=== PATIENT | female | born 1970 | race Asian ===

== ENCOUNTER 2024-03-19 10:09 | Emergency (ER) | payer BC, SELFPAY ==
[2024-03-19 10:29] VITALS: BP 109/69; PULSE 67; RESP 16; TEMP 36.4; O2SAT 98; BMI 21.4
--- NOTE | 2024-03-19 11:13 | PD.EDRME ---
Rapid Medical Screening Exam RME Arrival date/time: 03/19/24 10:09 This is a 54-year-old female that comes in with complaints of abdominal pain to the left lower quadrant. Patient states the pain started last night. Patient reports that she has had this pain before in the past but is gone away on its own. Patient denies nausea, vomiting, diarrhea, fever. Patient has a history of hysterectomy in the past. I have greeted and performed a focused initial assessment of this patient. Initial appropriate labs ordered at this time. A comprehensive ED assessment and evaluation of the patient and analysis of all test and completion of medical decision making process will be conducted by additional ED provider. Chief Complaint: Abdominal Pain Time Seen by Provider: 03/19/24 10:52 Vital signs: Vital Signs Temperature 97.5 F 03/19/24 10:29 Pulse Rate 67 03/19/24 10:29 Respiratory Rate 16 03/19/24 10:29 Blood Pressure 109/69 03/19/24 10:29 Pulse Oximetry (%) 98 03/19/24 10:29 Oxygen Delivery Method Room Air 03/19/24 10:29
[2024-03-19 11:54] LABS: Alanine Aminotransferase 34 U/L (10-49); Albumin, Serum 4.6 gm/dL (3.5-5.0); Albumin/Globulin Ratio 1.7 (1.2-2.2); Alkaline Phosphatase 55 U/L (46-116); Anion Gap 6 (7-16); Aspartate Amino Transferase 20 U/L (0-34); BUN/Creatinine Ratio 19 Ratio (12-20); Basophils % (Auto) 0 % (0-2.5); Bilirubin,Total 0.7 mg/dL (0.3-1.2); Blood Urea Nitrogen 13 mg/dL (9-23); Calcium 9.5 mg/dL (8.3-10.6); Calcium (Corrected) 9.5 mg/dL (8.5-10.1); Carbon Dioxide 27.8 mMol/L (20.0-31.0); Chloride 106 mMol/L (98-107); Creatinine (Component) 0.7 mg/dL (0.6-1.3); Eosinophils # (Auto) 0.1 Thou/mm3 (0.0-0.5); Eosinophils % (Auto) 1 % (0-10); Estimated Creatinine Clearance 80.3 mL/min (>60); Globulin 2.7 gm/dL (2.3-3.5); Glucose 98 mg/dL (74-106); Hematocrit 39.4 % (36.0-46.0); Hemoglobin 12.9 g/dL (12.0-16.0); Immature Granulocytes % (Auto) 0 % (0-0); Immature Granulocytes Auto 0.01 Thou/mm3 (0.00-0.00); Lipase 283 U/L (12-53); Lymphocytes # (Auto) 1.6 Thou/mm3 (1.0-4.8); Lymphocytes % (Auto) 25 % (10-50); Mean Corpuscular HGB Conc 32.7 g/dl (31.0-37.0); Mean Corpuscular Hemoglobin 31.4 pg (25.0-35.0); Mean Corpuscular Volume 96 fL (80-100); Monocytes # (Auto) 0.4 Thou/mm3 (0.0-0.8); Monocytes % (Auto) 6 % (0-12); Neutrophils # (Auto) 4.5 Thou/mm3 (1.8-7.7); Neutrophils % (Auto) 68 % (37-80); Nucleated Red Blood Cell % 0 /100 WBC (0); Osmolality,Calculated 279 (275-295); Platelet Count 247 Thou/mm3 (140-440); Potassium 3.7 mMol/L (3.4-5.1); RDW Standard Deviation 44.2 fL (36.4-46.3); Red Blood Count 4.11 Miln/mm3 (4.00-5.20); Sodium 140 mMol/L (136-145); Total Protein 7.3 gm/dL (5.7-8.2); White Blood Count 6.6 Thou/mm3 (3.6-11.0); eGFR > 60 See Note
[2024-03-19 13:01] LABS: Collection Type, Urine Voided
[2024-03-19 13:36] LABS: Bilirubin,Urine Negative (Negative); Blood,Urine Negative (Negative); Calcium Oxalate Crystals,Urine 1+; Clarity,Urine Turbid (Clear/Hazy); Color,Urine Yellow (Lt Yel-Yel); Culture Indicated,Urine Not Indicated; Glucose, Urine Negative (Negative); Ketones,Urine Negative (Negative); Leukocyte Esterase,Urine Negative (Negative); Nitrite,Urine Negative (Negative); Protein,Urine 1+ (Neg - Trace); RBC,Urine 1 /hpf (0-3); Specific Gravity,Urine 1.035 (1.001-1.035); Squamous Epithelial Cell,Urine 14 /hpf (0-5); WBC,Urine 3 /hpf (0-5)
--- NOTE | 2024-03-19 14:53 | PD.EDABDPN ---
ED Abdominal Pain RME/HPI General Chief Complaint: Abdominal Pain Stated complaint: Abdominal pain X 3 days Time seen by provider: 03/19/24 10:52 Arrival date/time: 03/19/24 10:09 RME / HPI RME / HPI narrative: 03/19/24 10:09 This is a 54-year-old female that comes in with complaints of abdominal pain to the left lower quadrant. Patient states the pain started last night. Patient reports that she has had this pain before in the past but is gone away on its own. Patient denies nausea, vomiting, diarrhea, fever. Patient has a history of hysterectomy in the past. I have greeted and performed a focused initial assessment of this patient. Initial appropriate labs ordered at this time. A comprehensive ED assessment and evaluation of the patient and analysis of all test and completion of medical decision making process will be conducted by additional ED provider. DR. EHSAN GATES ED EVALUATION 54 year old female with history of hysterectomy, kidney stone on the left side presents to the ED for abdominal pain beginning 3 days ago. Described as aching in sensation that is located to the left lower quadrant, rating as mild-moderate. Denies fevers, chills, cough, vomiting, diarrhea, or urinary symptoms. No other associated symptoms or complaints reported. Related Data Allergies Allergy/AdvReac Type Severity Reaction Status Date / Time Penicillins Allergy Verified 03/19/24 10:15 Review of Systems Review of Systems Narrative Review of Systems: GEN: No fever, no chills, no weight loss EYES: No discharge, no visual changes, no pain HEENT: No ear pain, no congestion, no sore throat PULM: No shortness of breath, no cough, no congestion CV: No chest pain, no dyspnea on exertion, no palpitations GI: No nausea, no vomiting, no diarrhea, +pain, no constipation : No frequency, no urgency and no dysuria MUSC/SKEL No joint pain, no back pain SKIN: No rash NEURO: No weakness, no headache Past Medical History Social History SMOKING STATUS: Never smoker ED Exam Narrative Physical exam: GENERAL APPEARANCE: Well hydrated, well nourished, in no acute distress. VITALS: All vitals were reviewed and the pulse ox is 98% on room air which is normal according to my interpretation. HEENT: Normocephalic, atramatic, EOMI, EACs are patent. There is no bulge or retraction. Throat without erythema or exudate. Moist oromucosa. No jaundice NECK: Supple, no JVD or bruits. CARDIOVASCULAR: Heart regular without S3-S4 or murmur. No rubs or gallops. LUNGS/CHEST: Clear to auscultation bilaterally. No rales, rhonchi, or wheezing. Normal inspection. ABDOMEN: Soft, minimal left lower abdominal pain, with normal bowel sounds. No pulsatile masses. No rebound, rigidity, or guarding. No incarcerated hernia. EXTREMITIES: Normal inspection and palpation. No edema, clubbing, or cyanosis. Intact CSM SKIN: Warm and dry without rashes. Normal inspection. MUSCULOSKELETAL: Normal inspection. No gross deformity, full ROM all extremities NEURO: Alert and oriented x3. Cranial nerves II through XII grossly intact. There are no other motor or sensory deficits noted. PSYCHIATRIC: Normal mood and affect. No psychosis. Course Quality Measures none Orders Category Date Time Status CT abdomen pelvis wo con Stat Exams 03/19/24 14:54 Completed CBC Stat Lab 03/19/24 11:30 Completed Comprehensive Metabolic Panel Stat Lab 03/19/24 11:30 Completed HCG Qualitative,Urine Stat Lab 03/19/24 12:42 Completed Lipase Stat Lab 03/19/24 11:30 Completed Urinalysis, C/S if Indicated Stat Lab 03/19/24 12:42 Completed Vital Signs Vital signs: Vital Signs Temperature 97.5 F 03/19/24 10:29 Pulse Rate 67 03/19/24 10:29 Respiratory Rate 16 03/19/24 10:29 Blood Pressure 109/69 03/19/24 10:29 Pulse Oximetry (%) 98 03/19/24 10:29 Oxygen Delivery Method Room Air 03/19/24 10:29 Abdominal Pain MDM MDM Narrative MDM Narrative:: I, Bree Jackson, roberta scribing for and in the presence of Dr. Lewis. CBC is negative. CMP negative except for lipase of 283. UA is positive for crystals. No sign of DKA. Of note the patient does not have any tenderness over the epigastrium. But she is tender over the left lower quadrant. Therefore CAT scan was ordered. CT abdomen and pelvic was reviewed by me: Plenty of stool. No free air. No air-fluid level. No obstruction. Solid organs appear to be unremarkable. Including the kidneys. There is no surgical abdomen at this time. 6:15 PM the patient to be discharged home. I gave the patient copy of the CT report to bring to her PMD for further follow-up care. The patient is from [facility] and will go back to [facility] tomorrow. Patient data External records reviewed:: None Clinical information provided by:: patient Social determinants that could affect healthcare access:: none Patient has the following chronic illnesses:: hysterectomy, kidney stone How is presenting disease/condition affected by chronic disease/condition?: uneffected by Evaluation data The following diagnostics were reviewed and interpreted by me:: lab results and radiology exam(s) Lab and/or radiology exams considered but not ordered:: None Interpretation Summary: Ordering Physician: Luis Alberto Lewis MD Date of Service: 03/19/24 Procedure(s): CT abdomen pelvis wo con Accession Number(s): [id number] cc: Yifan Monique MD; NO PRIMARY/FAMILY,PHYSICIAN; Luis Alberto Lewis MD~ Examination: CT abdomen and pelvis without contrast. Coronal 3-D reconstructions. Sagittal 2-D reconstructions. Date and time of exam:March 19, 2024 1602 hrs. Indications: Left-sided abdominal pain beginning 2 days ago CTDI: vol (mGy): 5.37 DLP: (mGycm): 259 Technique: Axial images of the abdomen have been obtained, 3 mm slice thickness Intravenous contrast material has not been administered. Low dose protocols were performed. One or more of the following dose reduction techniques were used; automated exposure control, adjustment of the mA and/or KV according to patient size, use of iterative reconstruction technique. Findings: No focal liver or splenic lesions No gallstones No pancreatic or adrenal mass No renal or ureteral calculi, no hydronephrosis Abdominal aortic calcification no aneurysmal dilatation Normal appendix No bowel obstruction No diverticulitis Contracted urinary bladder No pelvic mass Intact osseous structures Impression: No renal or ureteral calculi, no hydronephrosis Normal appendix No bowel obstruction diverticulitis or free air Dictated By: Yifan Monique MD Signed By: <Electronically signed by Yifan Monique MD in OV> 03/19/24 1650 Medications / Prescriptions Medications or Prescriptions considered but not ordered:: None Medication administrations:: None Consultations Consultation(s) initiated? (list below): No Diagnosis Differential diagnosis abdominal pain: abdominal pain, calculus of kidney, diverticulitis and pancreatitis Most likely diagnosis given after review of the tests above:: Abdominal pain. Constipation Admission Indicated Admission indicated?: not indicated Admission Request Was there a request for admission?: No Disposition Plan Disposition Plan: Discharge Discharge Attestation Discharge Attestation: The patient and all family members were given an opportunity to ask questions and understood the discharge instructions. Discharge instructions specifically effects, indications for sooner follow up or return to the emergency department, and the expected course of current diagnosis. Patient condition: Stable Discharge Plan Plan Patient Disposition: HOME (Self Care) Disposition Comment: Stable to go home Prescriptions/Referrals Referrals: No Primary/Family,Physician [Primary Care Provider] - In 1 week Problem List Clinical Impression: Abdominal pain Patient/Caregiver Discharge Instructions Education Materials: Abdominal Pain Additional Instructions: CAT scan shows constipation. Please take OTC laxative such as milk of magnesia or magnesium citrate. Follow-up with your medical doctor in 3 days. Show him a hard copy of the CT report that I gave you. Return to nearest ER if condition worsens or if new symptoms develop especially fever. Print Language: Gabonese Stand Alone Forms: [employer] Award Info., Patient Portal Info Letter
[2024-03-19 15:13] LABS: HCG Qualitative,Urine Negative
[2024-03-19 16:11] VITALS: BP 131/78; PULSE 62; RESP 16; TEMP 36.7; O2SAT 99
[2024-03-19 18:00] VITALS: BP 131/70; PULSE 70; RESP 16; TEMP 36.7; O2SAT 100
== END 2024-03-19 18:21 | disposition home or self-care (01) ==
PROVIDERS: Nurse Practitioner Family; Emergency Provider Emergency Medicine
DX: R10.32 Left lower quadrant pain (principal)
CPT/HCPCS: 36415; 74176; 80053; 81001; 81025; 83690; 85025; 99284